=== PATIENT | female | born 1950 | race Two or more races ===

== ENCOUNTER 2023-02-22 11:26 | Emergency (ER) | payer MEDICARE, BC ==
[2023-02-22] MEDS ORDERED: ETOMIDATE (2MG/ML) 20ML VIAL IV ONE (13:30)
[2023-02-22 15:05] VITALS: BP 132/65
== END 2023-02-22 15:53 | disposition home or self-care (01) ==
LOC: ER 11:26
DX: S43.004A Unspecified dislocation of right shoulder joint, initial encounter (principal); I10 Essential (primary) hypertension; Z90.49 Acquired absence of other specified parts of digestive tract; W18.39XA Other fall on same level, initial encounter; Y93.89 Activity, other specified; Y92.89 Other specified places as the place of occurrence of the external cause; Y99.8 Other external cause status
CPT/HCPCS: 23650; 73030; 99152; 99153